=== PATIENT | male | born 1995 | race Caucasian/White ===

== ENCOUNTER 2020-07-09 21:50 | Emergency (ER) | payer OTHER ==
[~2020-07-09] VITALS: Ht 180.3 cm; Wt 81.5 kg
[2020-07-09 21:55] VITALS: BP 131/85
--- NOTE | 2020-07-09 22:36 | PHYS DOC ---
Past History Past Medical History: No Pertinent History Past Surgical History: Other Additional Past Surgical Histo: eye surgery Alcohol Use: Occasionally Adult General Chief Complaint Chief Complaint: HAND PROBLEM HPI HPI Patient is a 25-year-old male who presents with some tingling in his left arm that started this morning. States he did fall asleep on the couch this morning and woke up with some tingling in his left arm that made his arm feel a little h eavy, like it had fallen asleep. Denies any other injuries. Denies any other numbness/weakness/tingling. States he is able to move his arm without issue it just feels funny. Denies any history of cardiovascular disease, or any other medical problems. States he is in the and is in otherwise good shape. States he never had anything like this before. Denies any chest pain, shortness of breath, abdominal pain, nausea, vomiting. States he is making urine and stool normally for him. Denies any recent travel, traumas, illnesses, fevers, Covid/flu symptoms. Review of Systems Review of Systems Review of systems otherwise unremarkable except noted in HPI Allergies Allergies Allergies Coded Allergies Type Severity Reaction Last Updated Verified No Known Drug Allergies 07/09/20 No Physical Exam Physical Exam Constitutional: Well developed, well nourished, no acute distress, non-toxic appearance. [] Neck: Normal range of motion, no tenderness, supple, Cardiovascular:Heart rate regular rhythm, no murmur [] Lungs & Thorax: No respiratory distress Abdomen: soft, no tenderness, no masses, no pulsatile masses. [] Skin: Warm, dry, no erythema, no rash. [] Back: No tenderness, Extremities: No tenderness, no cyanosis, no clubbing, ROM intact, no edema. [] Neurologic: Alert and oriented X 3, normal motor function, normal sensory function, able to sit without issue, able to ambulate without issue no focal deficits noted. [] Psychologic: Affect normal, judgement normal, mood normal. [] Current Patient Data Vital Signs Vital Signs Date Time Temp Pulse Resp B/P (MAP) Pulse Ox O2 Delivery O2 Flow Rate FiO2 07/09/20 21:55 98.5 73 18 131/85 (100) 98 Room Air Lab Results Laboratory Tests Test 07/09/20 22:03 Glucose (Fingerstick) 99 mg/dL (70-99) EKG EKG [] Radiology/Procedures Radiology/Procedures [] Heart Score C/O Chest Pain: No Risk Factors: Risk Factors: DM, Current or recent (<one month) smoker, HTN, HLP, family history of CAD, obesity. Risk Scores: Risk Factors: DM, Current or recent (<one month) smoker, HTN, HLP, family history of CAD, obesity. Course & Med Decision Making Course & Med Decision Making Patient is a 25-year-old male who presents with left arm tingling after falling asleep on the couch last night Vital signs not concerning. Physical exam noted above. Patient with no focal neurologic deficits. Sang differential diagnosis with patient including falling asleep on his left side causing some transient nerve damage causing numbness and tingling. Reassured that he is neurovascularly intact, and has full range of motion without any injuries. Advised some physical therapy at home including Tylenol, ibuprofen and ice. Advised to follow-up with primary care as needed. Gave strict return precautions to the ED. Patient grateful, verbalized understanding and agreed with plan of discharge. [] Dragon Disclaimer Dragon Disclaimer This electronic medical record was generated, in whole or in part, using a voice recognition dictation system. Departure Departure: Impression: Primary Impression: Numbness and tingling in left arm Disposition: 01 HOME / SELF CARE / HOMELESS Condition: GOOD Referrals: PCP,UNKNOWN (PCP) CECI GUZMÁN MD, ADAM W MD July 09, 2020 22:36
== END 2020-07-09 22:45 | disposition home or self-care (01) ==
LOC: ER 21:50
DX: R20.0 Anesthesia of skin (principal)
CPT/HCPCS: 82947; 99282-25